=== PATIENT | female | born 1965 | race Caucasian/White ===

== ENCOUNTER 2021-10-25 11:54 | Observation (INO) ==
[2021-10-25] MEDS ORDERED: 0.9 % Sodium Chloride 1,000 ML IVC ONE ×2 (13:12→14:12)
[2021-10-25] MEDS ORDERED: Metoclopramide 10 MG/2 ML VIAL IVP ONE (13:12)
[2021-10-25 13:26] LABS: Basophils % 0.1 %; Hematocrit 44.8 % (35.3-44.9); Hemoglobin 15.1 g/dL (11.5-15.4); Immature Granulocytes % 0.7 % (0-4); Lymphocytes # 2.4 K/mcL (0.6-4.6); Lymphocytes % 10.1 %; Mean Corpuscular HGB Conc 33.7 g/dL (31.6-35.5); Mean Corpuscular Hemoglobin 28.2 pg (28.0-33.3); Mean Corpuscular Volume 83.7 fL (83.0-100.0); Mean Platelet Volume 8.5 fL (9.4-12.4); Monocytes % 8.3 %; Platelet Count 549 K/mcL (140-400); Red Blood Count 5.35 M/mcL (3.82-4.97); Red Cell Distribution Width 13.1 % (11.5-14.5); Segmented Neutrophils % 80.8 %; White Blood Count 23.8 K/mcL (4.3-11.1)
[2021-10-25 13:27] LABS: Neutrophils # 19.2 K/mcL (1.6-8.9)
[2021-10-25 13:43] LABS: Alanine Aminotransferase 27 Units/L (7-52); Albumin 4.8 g/dL (3.5-5.7); Albumin/Globulin Ratio 1.4 (1.1-2.2); Alkaline Phosphatase 96 Units/L (34-104); Aspartate Amino Transferase 17 Units/L (13-39); BUN/Creatinine Ratio 17 (6-26); Bilirubin,Direct 0.1 mg/dL (0.0-0.2); Bilirubin,Indirect 0.6 mg/dL (0.0-1.0); Bilirubin,Total 0.7 mg/dL (0.3-1.0); Blood Urea Nitrogen 27 mg/dL (6-20); Calcium 10.6 mg/dL (8.6-10.3); Carbon Dioxide 35 mEq/L (23-29); Chloride 82 mEq/L (98-107); Globulin 3.5 g/dL (2.4-3.5); Glucose 349 mg/dL (70-105); Lipase 13 Units/L (11-82); Osmolality,Calculated 293 (280-300); Potassium 3.2 mEq/L (3.5-5.1); Sodium 132 mEq/L (136-145); Total Protein 8.3 g/dL (6.4-8.9); eGFR For African Americans 41 (> 60); eGFR For Non-African Americans 34 (> 60)
[2021-10-25 13:45] LABS: Troponin I < 0.03 ng/mL (< 0.04)
[2021-10-25 14:03] LABS: Bilirubin,Urine Small (Negative); Blood,Urine Moderate (Negative); Clarity,Urine Turbid (Clear); Color,Urine Yellow (Yellow); Glucose,Urine (UA) 500 mg/dL (Normal); Ketones,Urine 40 mg/dL (Negative); Leukocyte Esterase,Urine Small (Negative); Nitrite,Urine Negative (Negative); PH,Urine 6.5 pH Units (5.0-8.0); Protein,Urine >=300 mg/dL (Neg-Trace); Specific Gravity,Urine 1.025 (1.010-1.025); Urobilinogen,Urine Normal (Normal)
[2021-10-25 14:09] LABS: Squamous Epithelial Cell,Urine Few per hpf (None-Few); WBC,Urine 50-100 per hpf (0-3)
[2021-10-25 14:10] LABS: Bacteria,Urine Many per hpf (None-Few)
[2021-10-25] MEDS ORDERED: Naloxone 0.4 MG/ML INJ IVP PRN (14:56)
[2021-10-25] MEDS ORDERED: Acetaminophen 325 MG TABLET PO PRN (14:56)
[2021-10-25] MEDS ORDERED: Dextrose 4 GM Chewable Tablets PO PRN ×2 (15:00)
[2021-10-25] MEDS ORDERED: D5% in Water 1,000 ML IVC PRN (15:00)
[2021-10-25] MEDS ORDERED: *HR* Dextrose 50 % in Water (Syg) 50 ML SYRINGE IVP PRN (15:00)
[2021-10-25] MEDS ORDERED: Insulin LISPRO 300 UNITS/3 ML VIAL SUBQ SCH ×2 (16:30→19:30)
[2021-10-25] MEDS: Ondansetron 4 MG/2 ML VIAL IVP PRN (17:22)
[2021-10-25] MEDS: carvediloL 6.25 MG TABLET PO SCH (17:46)
[2021-10-25] MEDS: 0.9 % Sodium Chloride 1,000 ML IVC SCH ×2 (18:04→23:04)
[2021-10-25] MEDS: Insulin LISPRO 300 UNITS/3 ML VIAL SUBQ SCH (20:30)
[2021-10-25 21:28] LABS: Calcium 9.3 mg/dL (8.6-10.3); Potassium 3.6 mEq/L (3.5-5.1)
[2021-10-26] MEDS: Insulin LISPRO 300 UNITS/3 ML VIAL SUBQ SCH ×4 (00:56→17:53)
[2021-10-26] MEDS: Ondansetron 4 MG/2 ML VIAL IVP PRN (00:57)
[2021-10-26] MEDS: 0.9 % Sodium Chloride 1,000 ML IVC SCH ×2 (06:16→14:58)
[2021-10-26] MEDS: *HR* Promethazine 25 MG/ML VIAL IM PRN ×2 (06:17→12:36)
[2021-10-26] MEDS: carvediloL 6.25 MG TABLET PO SCH ×2 (06:20→17:22)
[2021-10-26 06:54] LABS: Basophils % 0.1 %; Hematocrit 42.8 % (35.3-44.9); Hemoglobin 14.4 g/dL (11.5-15.4); Immature Granulocytes % 0.6 % (0-4); Lymphocytes # 2.7 K/mcL (0.6-4.6); Lymphocytes % 11.3 %; Mean Corpuscular HGB Conc 33.6 g/dL (31.6-35.5); Mean Corpuscular Hemoglobin 28.6 pg (28.0-33.3); Mean Corpuscular Volume 84.9 fL (83.0-100.0); Mean Platelet Volume 8.5 fL (9.4-12.4); Monocytes # 2.2 K/mcL (0.0-1.3); Monocytes % 9.4 %; Neutrophils # 18.5 K/mcL (1.6-8.9); Platelet Count 465 K/mcL (140-400); Red Blood Count 5.04 M/mcL (3.82-4.97); Red Cell Distribution Width 13.2 % (11.5-14.5); Segmented Neutrophils % 78.6 %; White Blood Count 23.5 K/mcL (4.3-11.1)
[2021-10-26 07:12] LABS: BUN/Creatinine Ratio 17 (6-26); Blood Urea Nitrogen 18 mg/dL (6-20); Calcium 8.8 mg/dL (8.6-10.3); Carbon Dioxide 28 mEq/L (23-29); Chloride 95 mEq/L (98-107); Glucose 231 mg/dL (70-105); Magnesium 1.2 mg/dL (1.6-2.6); Osmolality,Calculated 283 (280-300); Potassium 3.6 mEq/L (3.5-5.1); Sodium 132 mEq/L (136-145); eGFR For African Americans > 60 (> 60); eGFR For Non-African Americans 53 (> 60)
[2021-10-26] MEDS: Aspirin Enteric Coated 81 MG Tablet PO SCH (09:43)
[2021-10-26] MEDS: Metoclopramide 10 MG/2 ML VIAL IVP PRN ×2 (10:08→23:53)
[2021-10-26] MEDS: cefTRIAXone 2,000 MG in 0.9 % Sodium Chloride Mini Bag 100 ML IVPB SCH (10:34)
[2021-10-26] MEDS: Pantoprazole 40 MG VIAL IVP SCH (17:23)
[2021-10-27] MEDS ORDERED: 0.9 % Sodium Chloride 1,000 ML IVC SCH (01:00)
[2021-10-27] MEDS: Insulin LISPRO 300 UNITS/3 ML VIAL SUBQ SCH ×3 (01:44→12:22)
[2021-10-27] MEDS ORDERED: *HR* Enoxaparin 40 MG/0.4 ML SYRINGE SQ SCH (06:00)
[2021-10-27] MEDS: Pantoprazole 40 MG VIAL IVP SCH (06:33)
[2021-10-27 08:17] VITALS: BP 163/98; PULSE 78; RESP 14; TEMP 97.9; O2SAT 95
[2021-10-27 08:17] LABS: Basophils % 0.1 %; Eosinophils % 0.3 %; Hematocrit 40.3 % (35.3-44.9); Hemoglobin 12.9 g/dL (11.5-15.4); Immature Granulocytes % 0.4 % (0-4); Lymphocytes # 3.9 K/mcL (0.6-4.6); Lymphocytes % 24.5 %; Mean Corpuscular Hemoglobin 27.8 pg (28.0-33.3); Mean Corpuscular Volume 86.9 fL (83.0-100.0); Mean Platelet Volume 8.7 fL (9.4-12.4); Monocytes # 1.7 K/mcL (0.0-1.3); Neutrophils # 10.1 K/mcL (1.6-8.9); Platelet Count 413 K/mcL (140-400); Red Blood Count 4.64 M/mcL (3.82-4.97); Red Cell Distribution Width 13.2 % (11.5-14.5); Segmented Neutrophils % 63.7 %; White Blood Count 15.8 K/mcL (4.3-11.1)
[2021-10-27] MEDS: Aspirin Enteric Coated 81 MG Tablet PO SCH (08:26)
[2021-10-27] MEDS: carvediloL 6.25 MG TABLET PO SCH (08:26)
[2021-10-27] MEDS: cefTRIAXone 2,000 MG in 0.9 % Sodium Chloride Mini Bag 100 ML IVPB SCH (08:26)
[2021-10-27 08:27] LABS: Eosinophils # 0.1 K/mcL (0.0-0.6)
[2021-10-27 08:41] LABS: BUN/Creatinine Ratio 14 (6-26); Blood Urea Nitrogen 13 mg/dL (6-20); Calcium 7.9 mg/dL (8.6-10.3); Carbon Dioxide 24 mEq/L (23-29); Chloride 101 mEq/L (98-107); Glucose 173 mg/dL (70-105); Magnesium 1.6 mg/dL (1.6-2.6); Osmolality,Calculated 280 (280-300); Potassium 3.5 mEq/L (3.5-5.1); Sodium 133 mEq/L (136-145); eGFR For African Americans > 60 (> 60); eGFR For Non-African Americans > 60 (> 60)
[2021-10-27] MEDS: *HR* Promethazine 25 MG/ML VIAL IM PRN (09:10)
[2021-10-27] MEDS: Sucralfate 1 GM TABLET PO SCH ×2 (09:54→12:22)
[2021-10-27 15:30] LABS: Estimated Average Glucose 192 mg/dl; Hemoglobin A1C 8.3 %
== END 2021-10-27 15:20 | disposition home or self-care (01) ==
LOC: EMEROOPIK 11:54 → INPPIK 11:54
PROVIDERS: ADMIT Internal Medicine; ATTEND Internal Medicine